=== PATIENT | female | born 1945 | race Asian ===

== ENCOUNTER 2019-01-03 11:40 | Outpatient (CLI) | payer MEDICARE, OTHER, MEDICAID | END 2019-01-03 21:10 | disposition home or self-care (01) | LOC: SCA 11:40 | PROVIDERS: ATTEND Internal Medicine | DX: I08.0 Rheumatic disorders of both mitral and aortic valves (principal); M47.819 Spondylosis without myelopathy or radiculopathy, site unspecified | CPT/HCPCS: 71046-TC; 93306 ==

== ENCOUNTER 2019-01-17 10:22 | Outpatient (CLI) | payer MEDICARE, OTHER, MEDICAID | END 2019-01-17 20:53 | disposition home or self-care (01) | LOC: SRD 10:22 | PROVIDERS: ATTEND Internal Medicine | DX: M19.071 Primary osteoarthritis, right ankle and foot (principal) ==